=== PATIENT | male | born 1975 | race Caucasian/White ===

== ENCOUNTER 2017-04-19 08:24 | Inpatient (IN) | payer BC, OTHER ==
[~2017-04-19] VITALS: Ht 190.5 cm; Wt 115.7 kg
--- NOTE | 2017-04-19 18:06 | NUR ---
Intake Assessment; Patient is AOX4, presented to [facility] to detoxify from Oxycodone and Cocaine. Patient is a 42 year old male, arrived at intake office at approximately 1720. Patient reported allergies to Penicillins. Patient denies history of seizure. Admitting vital signs are as follows; BP 140/79, HR of 102, Respirations of 18 and Spo2 of 95%, temperature of 98.2, denies pain at this time. Educated patient regarding unit protocols and policies, patient verbalized understanding. Will continue with further assessment when patient is up on the unit.
[2017-04-19 18:37] LABS: *AMPHETAMINE, URINE NEGATIVE (NEGATIVE); *BARBITURATE, URINE NEGATIVE (NEGATIVE); *CANNABINOID, URINE NEGATIVE (NEGATIVE); *COCCAINE, URINE POSITIVE (NEGATIVE); *OPIATE, URINE NEGATIVE (NEGATIVE); *PHENCYCLIDINE SCREEN,URINE NEGATIVE (NEGATIVE)
--- NOTE | 2017-04-19 18:57 | NUR ---
End of shift; Patient is AOX4. Patient appears nervous and slightly anxious. Skin check done with no significant findings. Height of 6'3 and weight of 255lbs on standing scale. Oriented patient to unit. Safety measures secured. Endorsed patient to night for completion of admission assessment.
[2017-04-19] MEDS ORDERED: MIRALAX 17 GM POWD.PACK PO PRN (19:15)
[2017-04-19] MEDS ORDERED: MAGNESIUM HYDROXIDE 30 ML LIQUID UDC PO PRN (19:15)
[2017-04-19] MEDS ORDERED: DICYCLOMINE HCL 20 MG TABLET PO PRN (19:15)
[2017-04-19] MEDS ORDERED: LORAZEPAM 1 MG TABLET PO PRN (19:15)
[2017-04-19] MEDS ORDERED: ONDANSETRON ODT 4 MG TAB.RAPDIS SL PRN (19:15)
[2017-04-19] MEDS ORDERED: LORAZEPAM 2 MG/1 ML VIAL IM PRN (19:15)
[2017-04-19] MEDS ORDERED: LOPERAMIDE HCL 2 MG CAPSULE PO PRN ×2 (19:15)
[2017-04-19] MEDS ORDERED: ACETAMINOPHEN 325 MG TABLET PO PRN (19:15)
[2017-04-19] MEDS ORDERED: MAG HYDROX/AL HYDROX/SIMETH 30 ML LIQUID UDC PO PRN (19:15)
[2017-04-19] MEDS ORDERED: ONDANSETRON 4 MG/2 ML VIAL IM PRN (19:15)
[2017-04-19] MEDS ORDERED: hydrALAZINE HCL 50 MG TABLET PO PRN (19:15)
[2017-04-19] MEDS ORDERED: diphenhydrAMINE 50 MG CAPSULE PO PRN (19:15)
[2017-04-19 20:00] VITALS: BP 127/74
--- NOTE | 2017-04-19 20:00 | NUR ---
CIWA DEFERRED Pt laying in bed with eyes closed, CIWA deferred, to be assessed when pt is awake per orders. Respirations 18, even and unlabored. Safety measures in place. Call light within reach. Will continue to monitor.
--- NOTE | 2017-04-19 20:30 | NUR ---
ADMISSION NOTE Pt is a 42 y/o male admitted on 04/19/17 for ETOH, oxycodone, cocaine and Adderall dependence, arrived on the unit at 1808 during day shift, intake assessment done by day shift nurse. Pt is allergic to Penicillin, denies history of seizures. Pt was able to provide UDS. Vitals at 1999 are BP: 127/74, P: 100, R: 18, O2: 97%, T: 98.4, PA: 0/10. Weight 255, height 63. Pt reports he does not have a PCP, has a Psychiatrist, smokes tobacco socially, denies being hospitalized or being in custodial within past 30 days. Pt is able to understand and respond to all questions pertaining to his hospitalization. Substance Abuse History is as follows: 1. Oxycodone 80-300 mg occasional with binging, last used on 04/12/17, at this rate for 7-8 years. 2. Cocaine 1-2 grams daily, last used on 04/19/17, at this rate for 6 months. 3. Beer 12 pack daily, last drank a 12 pack on 04/18/17, at this rate for 6 months. 4. White [place] 3-4 drinks daily, last drank 3-4 drinks on 04/19/17, at this rate for 6 months. 5. Adderall 200-300 mg occasional with binging, last used unknown amount or time, at this rate for 7-8 years. 6. Xanax 2 mg once, last used on 04/19/17. Pt states he only used Xanax once prior to his flight from [place]. 7. Marijuana 4-5 joints weekly, last used unknown amount or time, at this rate for 25 years. PMH: Carpal tunnel syndrome and cyclothymia. Pt denies any hx of seizures. Pt has medications from home: Vitamin B6 and Prednisone. Upon assessment, pt is laying in bed snoring. Upon awakening, pt presents with anxiety, restlessness, malaise, agitation, pain in nasal area, nasal blood clots, body aches. Respirations even and unlabored. Denies SOB, chest pain, N/V/D. Bowel sounds active x 4, abdomen soft. PERRLA. Skin intact, no open wounds noted. Pt denies SI/HI. Educational information provided and left at bedside. Pt oriented to room and encouraged to notify staff with any concerns. Safety measures in place. Call light within reach, side rails up x 2, bed locked and in low position. Will continue to monitor.
[2017-04-19 20:58] LABS: BASOPHILS # (AUTO) 0.1 K/uL (0.0-8.0); BASOPHILS % (AUTO) 1.1 % (0.0-2.0); EOSINOPHILS # (AUTO) 0.3 K/uL (0.0-0.7); HEMATOCRIT 41.7 % (36.7-47.1); HEMOGLOBIN 14.6 g/dL (12.5-16.3); LYMPHOCYTES # (AUTO) 1.9 K/uL (20.0-40.0); LYMPHOCYTES % (AUTO) 27.7 % (20.5-51.5); MEAN CORPUSCULAR HEMOGLOBIN 30.7 uug (23.8-33.4); MEAN CORPUSCULAR HGB CONC 35 g/dL (32.5-36.3); MEAN CORPUSCULAR VOLUME 87.9 fL (73.0-96.2); MONOCYTES # (AUTO) 0.5 K/uL (2.0-10.0); MONOCYTES % (AUTO) 7.6 % (0.0-11.0); NEUTROPHILS # (AUTO) 4.1 K/uL (1.8-8.9); NEUTROPHILS % (AUTO) 58.6 % (38.5-71.5); PLATELET COUNT (AUTO) 237 K/uL (152-348); RED BLOOD CELL COUNT(AUTO) 4.75 MIL/uL (4.06-5.63); WHITE BLOOD COUNT (AUTO) 6.9 K/uL (3.6-10.2)
[2017-04-19 21:05] LABS: CARBON DIOXIDE 30 mmol/L (21-32); CHLORIDE 101 mmol/L (98-107); GLUCOSE 140 mg/dL (74-106); POTASSIUM 3.3 mmol/L (3.5-5.1); UREA NITROGEN, BLOOD 13 mg/dL (7-18)
[2017-04-19 21:06] LABS: ALANINE AMINOTRANSFERASE 31 U/L (16-63); ALKALINE PHOSPHATASE 48 U/L (50-136); AMYLASE 23 U/L (25-115); ASPARTATE AMINOTRANSFERASE 23 U/L (15-37); BILIRUBIN,TOTAL 0.3 mg/dL (0.2-1.0); MAGNESIUM 2.1 mg/dL (1.8-2.4); TOTAL PROTEIN, SERUM 6.8 g/dL (6.4-8.2)
[2017-04-19 21:15] LABS: ETHANOL < 3 MG/DL (0-0)
[2017-04-19] MEDS ORDERED: PRED20TA PO (23:56)
[2017-04-19] MEDS ORDERED: PYRI100T6 GT (23:56)
[2017-04-20] VITALS: BP 116/49
--- NOTE | 2017-04-20 | NUR ---
CIWA DEFERRED Pt laying in bed with eyes closed, snoring, CIWA deferred, to be assessed when pt is awake per orders. Respirations 18, even and unlabored. Safety measures in place. Call light within reach. Will continue to monitor.
[2017-04-20 04:00] VITALS: BP 122/56
[2017-04-20] MEDS ORDERED: IBUPROFEN 600 MG TABLET ONE (06:04)
[2017-04-20] MEDS: IBUPROFEN 600 MG TABLET PO PRN (06:42)
--- NOTE | 2017-04-20 06:42 | NUR ---
PRN MOTRIN ADMINISTRATION Pt reports generalized body pain and localized pain to nose described as pressure 4/10 overall. Will continue to monitor.
--- NOTE | 2017-04-20 07:28 | NUR ---
END OF SHIFT Pt is a 42 y/o male admitted on 04/19/17 for ETOH, opiate, cocaine and adderall dependence. Pt is full code, allergic to PNC, regular diet and on fall/seizure precautions. No reported seizure hx. Pt reports PMH of carpal tunnel in left hand and cyclothymia mood disorder. No ordered taper at this time. Pt presented with anxiety, restlessness, malaise, agitation, pain in nasal area, nasal blood clots, body aches. Pt also complains of numbness in 3, 4, 5th fingers of the left hand r/t carpal tunnel. No scheduled medications, PRN Motrin administered. Pt verbalized his S/S of withdrawal were manageable. Last CIWA 4. Pt slept 9 hours. Intake 500 ml, void x 1, stool x 0. Safety measures in place. Call light within reach. Pts needs have been met. Endorsed to day shift nurse.
--- NOTE | 2017-04-20 07:45 | NUR ---
START OF SHIFT RECEIVED PT RESTING IN BED A/O X2, NORMAL AFFECT AND COOPERATIVE. RESPIRATIONS EVEN AND UNLABORED. PT REPORTS BODY DISCOMFORT, HEADACHE, MILD NAUSEA AND IS VERY TIRED TODAY. ENCOURAGED PT TO COSUME MORE FLUIDS TO FACILITATE IN DETOX PROCESS. SIDE RAILS UP X2, BED IN LOWEST POSITION. INSTRUCTED PT TO USE CALL LIGHT IF NEEDED AND IS WITHIN REACH. FALL AND SZ PRECAUTIONS TAKEN. WILL CONTINUE TO MONITOR.
[2017-04-20 08:00] VITALS: BP 128/88
[2017-04-20] MEDS: THIAMINE HCL 100 MG TABLET PO SCH (08:31)
[2017-04-20] MEDS: MULTIVITAMINS,THERAPEUTIC TABLET PO SCH (08:31)
[2017-04-20] MEDS: FOLIC ACID 1 MG TABLET PO SCH (08:31)
[2017-04-20] MEDS ORDERED: TUBERCULIN,PURIF.PROT.DERIV. 5 TU/0.1 ML TEST ID ONE (09:00)
[2017-04-20] MEDS: QUETIAPINE FUMARATE 25 MG TABLET PO PRN (11:17)
--- NOTE | 2017-04-20 11:17 | NUR ---
PRN SEROQUEL 50 MG PO PRN GIVEN FOR AGITATION AND RESTLESSNESS.
[2017-04-20] MEDS: LORAZEPAM 1 MG TABLET PO PRN ×2 (11:27→18:08)
--- NOTE | 2017-04-20 11:27 | NUR ---
PRN PT C/O OF ANXIETY RESTLESSNESS, STATED HE HAD "FEELINGS OF DISCOMFORT". CIWA 7. ATIVAN 1 MG PO PRN GIVEN.
[2017-04-20 12:00] VITALS: BP 111/65
--- NOTE | 2017-04-20 12:17 | NUR ---
REASSESSMENT PT STATED MOTRIN WAS EFFECTIVE FOR GENERALIZED BODY ACHES BUT NOT EFFECTIVE FOR NASAL PAIN.
--- NOTE | 2017-04-20 12:17 | NUR ---
REASSESSMENT PT APPEARED LESS AGITATED AND RESTING IN BED UPON REASSESSMENT.
--- NOTE | 2017-04-20 12:27 | NUR ---
REASSESSMENT PT REPORTED ATIVAN WAS EFFECTIVE UPON REASSESSMENT.
[2017-04-20] MEDS ORDERED: POTASSIUM CHLORIDE 10 MEQ CAPSULE.SA PO ONE (13:00)
[2017-04-20] MEDS: NORMAL SALINE NASAL 45 ML BOTTLE NS PRN (13:12)
[2017-04-20 16:00] VITALS: BP 134/91
--- NOTE | 2017-04-20 18:08 | NUR ---
PRN PT C/O OF ANXIETY AND ATIVAN 1MG PO PRN ADMINISTERED.
--- NOTE | 2017-04-20 19:12 | NUR ---
REASSESSMENT PT REPORTED ATIVAN WAS EFFECTIVE UPON REASSESSMENT.
--- NOTE | 2017-04-20 19:19 | NUR ---
PT RESTING IN BED WEARING SCDS, A/O X4, NORMAL AFFECT AND COOPERATIVE. RESPIRATIONS EVEN AND UNLABORED. PT APPEARED AGITATED BUT STABLE. PT REPORTED HAVING ANXIETY, RESTLESSNESS, AND GENERALIZED BODY ACHES. LAST CIWA 8. PT GIVEN ATIVAN 1 MG PO PRN AT 1117, AND 1808 FOR ANXIETY, NASAL SPRAY FOR NASAL DISCOMFORT AT 1312, AND SEROQUEL 50 MG FOR AGITATION . POTASSIUM 30 MEQ WAS ORDERED AND GIVEN PER MD ORDER. PENCOURAGED PT TO COSUME MORE FLUIDS TO FACILITATE IN DETOX PROCESS. SIDE RAILS UP X2, BED IN LOWEST POSITION. INSTRUCTED PT TO USE CALL LIGHT IF NEEDED AND IS WITHIN REACH. FALL AND SZ PRECAUTIONS TAKEN. WILL CONTINUE TO MONITOR. Addendum: 04/20/17 at 1919 by KELSEY SAHU RN END OF SHIFT
--- NOTE | 2017-04-20 19:30 | NUR ---
START OF SHIFT Pt is a 42 y/o male admitted on 04/19/17 for ETOH, opiate, cocaine and adderall dependence. Pt is full code, allergic to PNC, regular diet and on fall/seizure precautions. No reported seizure hx. Pt reports PMH of carpal tunnel in left hand and cyclothymia mood disorder. No ordered taper at this time, PRN Ativan available. VTE score 2, pumps in place. Upon assessment pt is laying in bed with eyes closed, snoring. Upon awakening, pt presents with elevated HR and BP, anxiety, nasal discomfort, anhedonia, dysphoria, agitation and fatigue. Respirations 16, even and unlabored. Denies N/V/D. Denies chest pain or SOB. Medications due. Safety measures in place. Call light within reach. Will continue to monitor.
[2017-04-20 20:00] VITALS: BP 140/89
--- NOTE | 2017-04-20 20:00 | NUR ---
CIWA DEFERRED Pt is laying in bed with eyes closed, snoring. Respirations 18, even and unlabored. Safety measures in place. Call light within reach. Will continue to monitor.
[2017-04-21] VITALS (8 sets, daily range): BP systolic 116–147; BP diastolic 68–101
[2017-04-21] MEDS: HYDROXYZINE PAMOATE 25 MG CAPSULE PO PRN ×2 (04:03→11:28)
[2017-04-21] MEDS: IBUPROFEN 600 MG TABLET PO PRN ×2 (04:03→11:28)
--- NOTE | 2017-04-21 04:03 | NUR ---
PRN MOTRIN, VISTARIL AND SEROQUEL ADMINISTRATION Pt reports pain in left hand r/t carpal tunnel and in nose r/t withdrawal 10/18. Pt appears with anxiety and agitation, PRN Vistaril and Seroquel administered per orders. Safety measures in place. Call light within reach. Will continue to monitor.
[2017-04-21] MEDS: QUETIAPINE FUMARATE 25 MG TABLET PO PRN ×3 (04:07→21:00)
--- NOTE | 2017-04-21 05:03 | NUR ---
PRN MOTRIN, VISTARIL AND SEROQUEL REASSESSMENT Pt reports improvement in pain in nose and left hand tolerable level. Pt presents with improved anxiety and agitation. Pt reports only mild anxiety at this time. Safety measures in place. Call light within reach. Will continue to monitor.
--- NOTE | 2017-04-21 05:15 | NUR ---
PRN HYDRALAZINE AND NASAL OCEAN SPRAY ADMINISTRATION BP 144/101 HR 90, orders to give Hydralazine for BP >160/100. Pt presents with nasal congestion r/t withdrawal and requests nasal spray. safety measures in place. Call light within reach. Will continue to monitor.
[2017-04-21] MEDS: NORMAL SALINE NASAL 45 ML BOTTLE NS PRN ×2 (05:19→11:31)
--- NOTE | 2017-04-21 06:15 | NUR ---
PRN HYDRALAZINE AND NASAL OCEAN SPRAY REASSESSMENT Pt is laying in bed with eyes closed. Respirations 18, even and unlabored. Safety measures in place. Call light within reach. Will continue to monitor.
--- NOTE | 2017-04-21 07:18 | NUR ---
END OF SHIFT Pt is a 42 y/o male admitted on 04/19/17 for ETOH, opiate, cocaine and adderall dependence. Pt is full code, allergic to PNC, regular diet and on fall/seizure precautions. No reported seizure hx. Pt reports PMH of carpal tunnel in left hand and cyclothymia mood disorder. No ordered taper at this time, PRN Ativan available. VTE score 2, VTE pumps in place and pt is compliant. Pt presented with elevated HR and BP, anxiety, nasal discomfort and congestion, anhedonia, pain and numbness in left hand r/t carpal tunnel, dysphoria, agitation and fatigue. Scheduled medications and PRN Motrin, Vistaril, Seroquel, Hydralazine and nasal spray administered, effective in S/S of withdrawal as verbalized by pt. Last CIWA 7 at 0400. Pt slept 9 hours. Intake 1151 ml, void x 4, stool x 0. Safety measures in place. Call light within reach. Pts needs have been met. Endorsed to day shift nurse.
--- NOTE | 2017-04-21 07:35 | NUR ---
START OF SHIFT Received report from distance learning technician nurse. Pt is lying in bed resting. He is a 42 yo [address] to [facility] on 04/19 for ETOH and Opiate dependence. He is A&O and ambulatory. Allergic to PCN's, full code status, and on a regular diet. PMH of carpal tunnel syndrome and cyclothymia mood disorder. On admission he reported drinking a 12 pack of beer per day, xanax 2mg once, oxycodone 80-300mg occasionally, cocaine 1-2 grams per day, adderall 200-300mg occasionally, marijuana. PRN's available for the management of withdrawal symptoms. Fall and seizure precautions in place. Bed is down with call light in reach.
[2017-04-21] MEDS: FOLIC ACID 1 MG TABLET PO SCH (08:59)
[2017-04-21] MEDS: THIAMINE HCL 100 MG TABLET PO SCH (08:59)
[2017-04-21] MEDS: MULTIVITAMINS,THERAPEUTIC TABLET PO SCH (08:59)
--- NOTE | 2017-04-21 11:30 | NUR ---
PRN Seroquel, Vistaril, Motrin, and NS nasal spray Pt c/o feeling anxious, agitated, restless with body aches and nasal congestion. PRN Seroquel, Vistaril, Motrin, and NS nasal spray administered.
[2017-04-21 12:07] LABS: HEPATITIS B SURFACE AG Negative (Negative)
[2017-04-21] MEDS ORDERED: HYDROXYZINE PAMOATE 25 MG CAPSULE PO PRN (12:15)
[2017-04-21] MEDS ORDERED: METHOCARBAMOL 750 MG TABLET PO PRN (12:15)
[2017-04-21] MEDS ORDERED: CLONIDINE HCL 0.1 MG TABLET PO PRN (12:15)
[2017-04-21] MEDS ORDERED: CLONIDINE HCL 0.1 MG TABLET PO ONE (12:15)
--- NOTE | 2017-04-21 12:30 | NUR ---
PRN Seroquel, Vistaril, Motrin, and NS nasal spray reassessment PRN Seroquel, Vistaril, Motrin effective. Pt is lying relaxed in bed. He reports body aches are reduced. NS nasal spray not effective. Pt continues to have nasal congestion.
--- NOTE | 2017-04-21 13:00 | NUR ---
Nursing note Pt requested a left wrist brace from his luggage. OK per Dr Clayton for pt to use the brace. Notified [employer] supervisor of operations for brace to be retrieved from his luggage.
[2017-04-21] MEDS: GABAPENTIN 300 MG CAPSULE PO SCH ×2 (13:15→16:49)
[2017-04-21] MEDS: FLUTICASONE PROP NASAL SPRAY 16 GM BOTTLE NS SCH (13:15)
[2017-04-21] MEDS: CARBAMIDE PEROXIDE OTIC DROP 15 ML BOTTLE EACH EAR SCH ×2 (13:23→21:00)
--- NOTE | 2017-04-21 13:25 | NUR ---
Nursing Note Pt c/o nasal and ear congestion with, blood tinged mucus from the nose, and a feeling of fullness in the head. He was using 1-2 grams of cocaine per day for the past 6 months. Contacted MD. Orders received and carried out.
--- NOTE | 2017-04-21 19:28 | NUR ---
END OF SHIFT Report provided to lead applier nurse. Pt is in his room finishing dinner. He is a 42 yo male admitted to [facility] on 04/19 for ETOH and Opiate dependence. He is A&O and ambulatory. Allergic to PCN's, full code status, and on a regular diet. PMH of carpal tunnel syndrome and cyclothymia mood disorder. On admission he reported drinking a 12 pack of beer per day, xanax 2mg once, oxycodone 80-300mg occasionally, cocaine 1-2 grams per day, adderall 200-300mg occasionally, marijuana. PRN NS nasal spray, Seroquel, Motrin, and Vistaril administered. New orders received for debrox and flonase for reports of congestion. Last CIWA was 3. Pt is scheduled for discharge tomorrow. He drank 2200mL Fall and seizure precautions in place. Bed is down with call light in reach.
--- NOTE | 2017-04-21 19:30 | NUR ---
START OF SHIFT Pt is a 42 yo male admitted for ETOH and Opiate dependence. He is A/O X 4 . Allergic to PCN, full code status, and on a regular diet. PMH of carpal tunnel syndrome and cyclothymia mood disorder. Per report new orders were received for debrox and flonase for c/o congestion. Last CIWA was 3.Pt received sleeping in room,arousable on approach,said "I am all good";breathing is even and non labored,no s/s od acute distress noted.Pt is scheduled for discharge tomorrow. Fall and seizure precautions in place. Bed is locked in lowest position with side rails up x 2, call light within reach,will continue to monitor.
[2017-04-21] MEDS ORDERED: IBUP-1955 PO (19:57)
[2017-04-21] MEDS ORDERED: DIPH50CA37 PO (19:57)
[2017-04-21] MEDS ORDERED: HYDR-3895 PO (19:57)
[2017-04-21] MEDS ORDERED: GABA-534 PO (19:57)
[2017-04-21] MEDS ORDERED: METH-406 PO (19:57)
[2017-04-21] MEDS ORDERED: CLON0.1T14 PO (19:57)
[2017-04-21] MEDS ORDERED: FLUT16SP NS (19:58)
--- NOTE | 2017-04-21 21:02 | NUR ---
Pt is somewhat irritable,does not want to be bothered.PRN seroquel and benadryl given as ordered for agitation and insomnia,will continue to monitor.Pt does not want to be woken up for V/S,said "they already checked my V/S a million times today,I am fine ,thank you".
--- NOTE | 2017-04-21 21:08 | NUR ---
PT REFUSED EAR DROPS ORDERED.
--- NOTE | 2017-04-22 | NUR ---
V/S REFUSED; CIWA DEFERRED Pt is sleeping in bed in his room,breathing is even and non labored,no s/s of acute distress noted,will continue to monitor for safety.
--- NOTE | 2017-04-22 06:48 | NUR ---
END OF SHIFT Pt is a 42 yo male admitted for ETOH and Opiate dependence. He is A/O X 4 . Allergic to PCN's, full code status, and on a regular diet. PMH of carpal tunnel syndrome and cyclothymia mood disorder. Pt refused debrox drops last night.Slept 7 hrs,fluid intake was 1035 mls,voided x 2. Last CIWA was 3. Pt is scheduled for discharge today.PRN Seroquel and Benadryl were given and were effective. Fall and seizure precautions in place. Bed is locked in lowest position with side rails up x 2, call light within reach,will continue to monitor.
--- NOTE | 2017-04-22 07:35 | NUR ---
START OF SHIFT Received report from machinist 2nd shift nurse. Pt is in his room getting ready for the day. He is a 42 yo male admitted to [facility] on 04/19 for ETOH and Opiate dependence. He is A&O and ambulatory. Allergic to PCN's, full code status, and on a regular diet. PMH of carpal tunnel syndrome and cyclothymia mood disorder. On admission he reported drinking a 12 pack of beer per day, xanax 2mg once, oxycodone 80-300mg occasionally, cocaine 1-2 grams per day, adderall 200-300mg occasionally, marijuana. PRN's were ordered for the management of withdrawal symptoms. Treatment completed and he is scheduled for discharge today. He reports anxiety r/t discharge. Provided support and encouragement. Minimal other s/s of withdrawal. Fall and seizure precautions in place. Bed is down with call light in reach.
[2017-04-22 08:00] VITALS: BP 130/90
[2017-04-22] MEDS: FOLIC ACID 1 MG TABLET PO SCH (08:39)
[2017-04-22] MEDS: MULTIVITAMINS,THERAPEUTIC TABLET PO SCH (08:39)
[2017-04-22] MEDS: GABAPENTIN 300 MG CAPSULE PO SCH (08:39)
[2017-04-22 08:40] VITALS: BP 130/90
[2017-04-22] MEDS: THIAMINE HCL 100 MG TABLET PO SCH (08:40)
--- NOTE | 2017-04-22 08:42 | NUR ---
PRN Clonidine, Tylenol, and Vistaril Pt reports feeling anxious, restless, with mild body aches. Provided support and encouraged relaxation. PRN Clonidine, Tylenol, and Vistaril administered.
[2017-04-22] MEDS: FLUTICASONE PROP NASAL SPRAY 16 GM BOTTLE NS SCH (08:43)
[2017-04-22] MEDS: CARBAMIDE PEROXIDE OTIC DROP 15 ML BOTTLE EACH EAR SCH (09:00)
--- NOTE | 2017-04-22 09:35 | NUR ---
DISCHARGE Pt is in stable condition. Vitals WNL, pt alert and oriented x4, skin intact. He denies any SI/HI. All discharge paperwork completed, dated, and signed. Pt educated about discharge instructions, what to do after discharge, when to contact MD, as well as the s/s reportable to MD. Pt verbalized understanding of instructions. Last CIWA 3. Pt was discharged from [facility] on 04/22/17 at 0931. He left the building with all of his belongings and medications. MD has been contacted and is aware of pt's discharge.
== END 2017-04-22 09:31 | disposition other institution (70) | DRG 897 ==
LOC: SRC 17:23
PROVIDERS: ADMIT Internal Medicine; ATTEND Internal Medicine
PROC: HZ2ZZZZ Detoxification Services for Substance Abuse Treatment (ICD-10-PCS; principal; 2017-04-19)
DX: F10.230 Alcohol dependence with withdrawal, uncomplicated (principal); F11.10 Opioid abuse, uncomplicated; E88.81 Metabolic syndrome and other insulin resistance; I15.9 Secondary hypertension, unspecified; E66.9 Obesity, unspecified; E87.6 Hypokalemia; F14.23 Cocaine dependence with withdrawal; F13.10 Sedative, hypnotic or anxiolytic abuse, uncomplicated; Y90.0 Blood alcohol level of less than 20 mg/100 ml; Z88.0 Allergy status to penicillin; Z68.31 Body mass index [BMI] 31.0-31.9, adult; F41.9 Anxiety disorder, unspecified
CPT/HCPCS: 36415; 80307; 80346; 80353; 83735; 85025; 86592; 86705; 86803; 87340; 87806; A4663; G0480; J3535; Q0163